=== PATIENT | male | born 1935 | race Caucasian/White ===

== ENCOUNTER 2019-01-14 06:29 | Day surgery (SDC) | payer MEDICARE, BC ==
[2019-01-14] VITALS (12 sets, daily range): BP systolic 79–150; BP diastolic 43–80; PULSE 20–74; TEMP 98.4
[~2019-01-14] VITALS: Ht 180.3 cm; Wt 76.8 kg
[2019-01-14] MEDS ORDERED: ASPIRIN E.C. 8181 MG PO (07:03)
[2019-01-14] MEDS ORDERED: LIPITOR 40MG TA40 MG PO (07:03)
[2019-01-14] MEDS ORDERED: COLACE 100100 MG/CAP PO (07:09)
[2019-01-14] MEDS ORDERED: ZEBETA 5MG5 MG PO (07:09)
[2019-01-14] MEDS ORDERED: PROSCAR 5MG5 MG PO (07:10)
[2019-01-14] MEDS ORDERED: MASON NATURAL1000 MG PO (07:10)
[2019-01-14] MEDS ORDERED: NATURAL POTASS595 MG PO (07:11)
[2019-01-14] MEDS ORDERED: ZESTRIL 20MG TA20 MG PO (07:11)
[2019-01-14] MEDS ORDERED: FLOMAX 0.40.4 MG/CAP PO (07:12)
[2019-01-14 07:19] LABS: HEMATOCRIT 38.9 % (42.0-52.0); HEMOGLOBIN 12.9 g/dl (13.5-18.0); MEAN CELL VOLUME 92 fl (80.0-100.0); MEAN CORPUSCULAR HEMOGLOBIN 30 pg (27.0-31.0); MEAN CORPUSCULAR HGB CONC 33 g/dl (33.0-37.0); MEAN PLATELET VOLUME 12.2 fl (7.4-10.4); PLATELET COUNT 163 K/mm3 (130-400); PROTHROMBIN TIME 11.2 SECONDS (9.7-12.8); RED BLOOD COUNT 4.24 M/mm3 (4.20-5.60); REDCELL DISTRIBUTION WIDTH-CV 12.9 % (11.5-14.5)
[2019-01-14 07:20] LABS: CALCIUM 9.9 mg/dL (8.4-10.2); CREATININE, serum 1.17 (0.66-1.25); POTASSIUM 4.3 mmol/L (3.4-5.0)
[2019-01-14 07:21] LABS: PARTIAL THROMBOPLASTIN TIME 33.5 SECONDS (26.0-37.0)
--- NOTE | 2019-01-14 08:30 | NUR ---
SEE MERGE REPORT FOR MEDICATION ADMINISTRATION TIMES WELL INTRA/POST SEDATION ASSESSMENTS.
--- NOTE | 2019-01-14 09:28 | NUR ---
Back from slab tripper by bed. Alert and oriented, denies pain and needs at this time. Right groin CD&I, soft to palpation with palapable pedal pulses bilat. Dr. Woods in to talk with son/pt. VSS
--- NOTE | 2019-01-14 09:31 | NUR ---
Pt transported to room 12 for recovery. Pt placed on bedside vital signs monitor as well as ECG monitor. Bedside report to JODIE García. Groin site to right femoral artery stable. Dressing clean, dry and intact. Distal pulses remain +1 and unchanged from prior to procedure. Pt and family educated on plan of care by Dr. Woods and all questions answered.
[2019-01-14 09:45] LABS: ARTERIAL BLD GAS O2 SATURATION 90.9 % (92-100); ARTERIAL BLD GAS TCO2 CT 27.1; ARTERIAL BLOOD GAS BASE EXCESS 0.6 (-2-2); ARTERIAL BLOOD GAS HCO3 25.7 meq/L (22-26); ARTERIAL BLOOD GAS PCO2 43.1 mmHg (35-45); ARTERIAL BLOOD GAS PO2 61.6 mmHg (80-100); ARTERIAL BLOOD GAS pH 7.39 (7.35-7.45)
--- NOTE | 2019-01-14 11:13 | NUR ---
Dr. Woods in with pt/family. Discussed the VS change from laying flat to rev. trendelenburg position, Dr. Woods said he is aware.
--- NOTE | 2019-01-14 14:10 | NUR ---
INT discontinued intact. Ambulated with steady gait. Right groin remains soft to palpation and CD&I.
--- NOTE | 2019-01-14 14:34 | NUR ---
discharge instructions given to pt/son. Transferred to private car by [email or web address]
== END 2019-01-14 14:30 | disposition home or self-care (01) ==
LOC: COL.CAR 06:29
PROVIDERS: Internal Medicine Cardiovascular Disease; Nurse Practitioner
DX: I25.110 Atherosclerotic heart disease of native coronary artery with unstable angina pectoris (principal); I48.0 Paroxysmal atrial fibrillation; R55 Syncope and collapse; I34.0 Nonrheumatic mitral (valve) insufficiency; I15.0 Renovascular hypertension; I27.20 Pulmonary hypertension, unspecified; E78.00 Pure hypercholesterolemia, unspecified; M85.80 Other specified disorders of bone density and structure, unspecified site; Z79.82 Long term (current) use of aspirin; Z79.899 Other long term (current) drug therapy; Z95.1 Presence of aortocoronary bypass graft; Z86.74 Personal history of sudden cardiac arrest; Z82.49 Family history of ischemic heart disease and other diseases of the circulatory system
CPT/HCPCS: J1644; J2250; J3010; Q9967

== ENCOUNTER 2019-03-29 13:17 | Emergency (ER) | payer MEDICARE, BC ==
[~2019-03-29] VITALS: Ht 180.3 cm; Wt 73.6 kg
[~2019-03-29 13:17] MED LIST: ASPIRIN E.C. 8181 MG PO; COLACE 100100 MG/CAP PO; FLOMAX 0.40.4 MG/CAP PO; LIPITOR 40MG TA40 MG PO; MASON NATURAL1000 MG PO; NATURAL POTASS595 MG PO; PROSCAR 5MG5 MG PO; ZEBETA 5MG5 MG PO; ZESTRIL 20MG TA20 MG PO
[2019-03-29 13:31] VITALS: TEMP 97.7
[2019-03-29 15:13] LABS: BASO % 0.5 % (0.0-2.0); EOS # 0.1 (0.0-0.7); EOS % 2.4 % (0-4.0); GRAN # 4.3 (1.4-6.5); GRAN % 72.8 % (42.2-75.2); HEMOGLOBIN 11.9 g/dl (13.5-18.0); LYMPH % 16.5 % (20.0-51.0); MEAN CELL VOLUME 94 fl (80.0-100.0); MEAN CORPUSCULAR HEMOGLOBIN 31 pg (27.0-31.0); MEAN CORPUSCULAR HGB CONC 33 g/dl (33.0-37.0); MONO # 0.4 (0.1-0.6); MONO % 7.3 % (1.7-9.3); PLATELET COUNT 151 K/mm3 (130-400); RED BLOOD COUNT 3.89 M/mm3 (4.20-5.60); REDCELL DISTRIBUTION WIDTH-CV 12.6 % (11.5-14.5)
[2019-03-29 15:20] LABS: HEMATOCRIT 36.5 % (42.0-52.0)
[2019-03-29 15:24] LABS: ALANINE AMINOTRANSFERASE 23 U/L (21-72); ALBUMIN 3.9 gm/dL (3.5-5.0); ALKALINE PHOSPHATASE 64 U/L (50-136); ANION GAP 9 mmol/L (7-16); AST,SGOT 18 U/L (15-37); BILIRUBIN,TOTAL 0.3 mg/dL (0.0-1.0); BLOOD UREA NITROGEN 19 mg/dL (9-20); CALCIUM 9.1 mg/dL (8.4-10.2); CARBON DIOXIDE 29 mmol/L (22-30); CHLORIDE 99 mmol/L (98-107); GLUCOSE 126 mg/dL (74-106); POTASSIUM 3.6 mmol/L (3.4-5.0); SODIUM 138 mmol/L (137-145); TOTAL PROTEIN 6.5 gm/dL (6.4-8.2)
[2019-03-29 15:30] LABS: C-REACTIVE PROTEIN < 0.5 mg/dL (0.0-0.9)
[2019-03-29 15:34] LABS: TROPONIN-I < 0.012 ng/mL (0.000-0.035)
[2019-03-29 16:27] LABS: COLLECTION METHOD CLEAN CATCH
[2019-03-29 16:37] LABS: PH 7 (5-8); SQUAMOUS EPITHELIAL None Seen /hpf; URINE APPEARANCE Clear; URINE BACTERIA None Seen /hpf; URINE BILIRUBIN Negative (NEGATIVE); URINE BLOOD Negative (NEGATIVE); URINE COLOR Yellow; URINE GLUCOSE Negative (NEGATIVE); URINE KETONE Negative (NEGATIVE); URINE LEUKOCYTE ESTERASE Negative (NEGATIVE); URINE NITRATE Negative (NEGATIVE); URINE PROTEIN(semi-quant) Negative (NEGATIVE); URINE RBC 0-2 /hpf; URINE UROBILINOGEN Negative (NEGATIVE)
[2019-03-29 17:00] VITALS: BP 104/53; PULSE 65
== END 2019-03-29 17:05 | disposition home or self-care (01) ==
LOC: COL.ER 13:17
PROVIDERS: Emergency Medicine
DX: R42 Dizziness and giddiness (principal); R06.00 Dyspnea, unspecified; E78.5 Hyperlipidemia, unspecified; I10 Essential (primary) hypertension; Z95.9 Presence of cardiac and vascular implant and graft, unspecified; Z79.82 Long term (current) use of aspirin

== ENCOUNTER → 2019-05-29 | Outpatient (CLI) | payer MEDICARE, BC | LOC: COL.PUL 10:53 | DX: R06.02 Shortness of breath (principal) | CPT/HCPCS: J7674 ==